=== PATIENT | female | born 1935 | race Caucasian/White ===

== ENCOUNTER → 2018-05-18 14:48 | Outpatient (CLI) | payer MEDICARE, SELFPAY ==
--- NOTE | 2018-05-18 15:01 | DI.RAD.S_ITS ---
PROCEDURE: XR HIP W PEL IF DONE LT MIN 4V INDICATIONS: left hip pain TECHNIQUE: AP pelvis with lateral view(s) of the left and right hip(s). COMPARISON: None. FINDINGS: Bones: No fractures or dislocations. Pelvic ring appears intact. No suspicious bony lesions. Soft tissues: The visualized bowel gas pattern is normal. No suspicious soft tissue calcifications. IMPRESSION: 1. No fracture or dislocation. 2. 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 Dictated by: Devorah Gallegos M.D. on 05/18/2018 at 15:56 Approved by: Devorah Gallegos M.D. on 05/18/2018 at 16:08
--- NOTE | 2018-05-18 15:01 | DI.RAD.S_ITS ---
PROCEDURE: XR LUMBAR SPINE 2-3V INDICATIONS: low back pain TECHNIQUE: 3 views of the lumbar spine were acquired. COMPARISON: None. FINDINGS: Bones: 5 [id number] vertebrae are present. There is mild levoscoliosis and grade 1 anterolisthesis of L4 over L5. There is mild vertebral body compression fractures with 25% loss of vertebral body height. No suspicious bony lesions. Osteopenia. Mild degenerative disc disease with disc space narrowing at L3-L4 and L4-L5. Moderate facet arthropathy at L4-L5 and L5-S1. Soft tissues: Overlying bowel gas pattern is normal. Extensive vascular calcifications consistent with atherosclerosis. IMPRESSION: 1. Mild L1 compression fracture of uncertain chronicity. 2. Degenerative disc and facet disease. 3. Osteopenia. 4. Severe atherosclerosis. Dictated by: Devorah Gallegos M.D. on 05/18/2018 at 16:09 Approved by: Devorah Gallegos M.D. on 05/18/2018 at 16:13
[2018-05-18 15:17] LABS: RBC Urine None Seen (0-5/HPF)
[2018-05-18 15:39] LABS: Add Manual Diff / Slide Review NO; Basophils Percent Auto 1.1 % (0-2); Eosinophils Percent Auto 1.6 % (2-4); Hematocrit 42.5 % (36-46); Hemoglobin 14.4 g/dL (12.0-16.0); Lymphocytes Percent Auto 23.1 % (25-40); Mean Corpuscular HGB Conc 33.8 % (30-36); Mean Corpuscular Hemoglobin 30.8 PG (26-34); Mean Corpuscular Volume 91.3 fL (80-100); Monocytes Percent Auto 8.7 % (3-14); Neutrophils Absolute Auto 5000 /uL (3000-5900); Neutrophils Percent Auto 65.5 % (50-75); Platelet Count 268 X10^3/uL (150-400); Red Blood Cell Count 4.66 X10^6/uL (4.0-5.2); Red Cell Distribution Width 13.9 % (11.6-14.8); White Blood Cell Count 7.6 X10^3/uL (4.5-11.0)
[2018-05-18 16:02] LABS: Alanine Aminotransferase 21 IU/L (9-52); Albumin 4.4 g/dL (3.5-5.0); Albumin Globulin Ratio 1.8 (1.0-2.8); Alkaline Phosphatase 48 U/L (38-126); Aspartate Aminotransferase 20 IU/L (14-36); BUN Creatinine Ratio 17.1 (6-22); Bilirubin Total 0.4 mg/dL (0.2-1.3); Blood Urea Nitrogen 12 mg/dL (7-17); Calcium 9.4 mg/dL (8.4-10.2); Carbon Dioxide 30 mmol/L (22-32); Chloride 101 mmol/L (98-107); Estimated Glomerular Filt Rate > 60.0 mL/min (>60); Globulin 2.5 g/dL (1.7-4.1); Glucose 86 mg/dL (80-110); HEMOLYSIS < 15 (0-50); Potassium 3.9 mmol/L (3.4-5.1); Sodium 139 mmol/L (137-145); Total Protein 6.9 g/dL (6.3-8.2)
[2018-05-18 16:36] LABS: Appearance Urine UA SL CLOUDY; Bilirubin Urine UA NEGATIVE (NEGATIVE); Color Urine UA YELLOW; Glucose Urine UA NEGATIVE (Normal); Ketones Urine UA NEGATIVE (NEGATIVE); Leukocyte Esterase Urine UA TRACE (NEGATIVE); Nitrite Urine UA Negative (Negative); Occult Blood Urine UA NEGATIVE (Negative); Protein Urine UA NEGATIVE (Negative); Urobilinogen Urine UA 0.2 E.U./dL (0.2)
[2018-05-18 16:43] LABS: Thyroid Stimulating Hormone 1.12 uIU/mL (0.47-4.68)
[2018-05-18 17:12] LABS: Bacteria Urine Many (>30); Culture Indicated Urine Specimen Cultured; Squamous Epithelial Cell Urine None Seen; WBC Urine 1-5/HPF (0-5/HPF)
== END ==
PROVIDERS: Visit Provider Physician Assistant
DX: M54.5 Low back pain (principal); M25.552 Pain in left hip; R53.83 Other fatigue; R06.02 Shortness of breath; R32 Unspecified urinary incontinence; R10.2 Pelvic and perineal pain
CPT/HCPCS: 36415; 72100; 73522; 80053; 81001; 84443; 85025; 87077; 87086; 87186

== ENCOUNTER → 2018-06-23 13:09 | Outpatient (CLI) | payer MEDICARE, SELFPAY ==
[2018-06-23 13:17] LABS: Bacteria Urine None Seen
[2018-06-23 14:09] LABS: Appearance Urine UA CLEAR; Bilirubin Urine UA NEGATIVE (NEGATIVE); Color Urine UA YELLOW; Glucose Urine UA NEGATIVE (Normal); Ketones Urine UA NEGATIVE (NEGATIVE); Leukocyte Esterase Urine UA 2+ (NEGATIVE); Nitrite Urine UA Negative (Negative); Occult Blood Urine UA TRACE-LYSED (Negative); Protein Urine UA NEGATIVE (Negative); Urobilinogen Urine UA 0.2 E.U./dL (0.2)
[2018-06-23 14:54] LABS: Culture Indicated Urine Specimen Cultured; RBC Urine 0-1/HPF (0-5/HPF); WBC Urine 10-30/HPF (0-5/HPF)
== END ==
PROVIDERS: PCP Physician Assistant; Visit Provider Physician Assistant
DX: R30.0 Dysuria (principal)
CPT/HCPCS: 81001; 87077; 87086; 87186

== ENCOUNTER → 2018-07-20 10:55 | Outpatient (CLI) | payer MEDICARE, SELFPAY ==
[2018-07-20 11:17] LABS: Bacteria Urine None Seen
[2018-07-20 13:15] LABS: Appearance Urine UA CLEAR; Bilirubin Urine UA NEGATIVE (NEGATIVE); Color Urine UA YELLOW; Glucose Urine UA NEGATIVE (Normal); Ketones Urine UA NEGATIVE (NEGATIVE); Leukocyte Esterase Urine UA NEGATIVE (NEGATIVE); Nitrite Urine UA Negative (Negative); Occult Blood Urine UA TRACE-LYSED (Negative); Protein Urine UA NEGATIVE (Negative); Urobilinogen Urine UA 0.2 E.U./dL (0.2)
[2018-07-20 13:53] LABS: Culture Indicated Urine Cult Not Indicated; RBC Urine 0-1/HPF (0-5/HPF); Squamous Epithelial Cell Urine 0-1 /HPF; WBC Urine 0-1/HPF (0-5/HPF)
== END ==
PROVIDERS: PCP Physician Assistant; Visit Provider Physician Assistant
DX: N39.0 Urinary tract infection, site not specified (principal)
CPT/HCPCS: 81001

== ENCOUNTER 2018-09-05 12:03 | Emergency (ER) | payer MEDICARE, SELFPAY ==
[2018-09-05 12:10] VITALS: BP 197/96; PULSE 72; RESP 15; TEMP 36.4; O2SAT 99; BMI 19.1
--- NOTE | 2018-09-05 12:52 | ED.FALL ---
HPI - Fall <LAURIE Tello-BC - Last Filed: 09/05/18 21:24> General Chief Complaint: Fall Stated Complaint: GLF, facial injuries Time Seen by Provider: 09/05/18 12:42 Source: patient Mode of arrival: ambulatory Limitations: no limitations History of Present Illness HPI Narrative: Patient presents after a ground level fall, where she states she tripped while walking on the sidewalk and fell on her face as she had her hands in her pockets. She complains of bloody nose, headache, multiple abrasions on her face Right wrist and right knee. she denies any loss of consciousness or blood thinners. She complains of headache, denies nausea, vomiting, dizziness, confusion. She states she was ambulating after the accident. She denies any neck pain back pain or hip pain. She does not know when her last tetanus was. She was ambulatory on scene, and stated that she did not want to come to hospital. Related Data Home Medications Medication Instructions Recorded Confirmed Calcium 1 tab PO QPM 09/05/18 09/05/18 beclomethasone dipropionate [Qvar 1 puff INHALATION BID 09/05/18 09/05/18 RediHaler] naproxen sodium [Aleve] 1 tab PO PRN PRN 09/05/18 09/05/18 Previous Rx's Medication Instructions Recorded albuterol sulfate HFA 90 2 puff INHALATION QID PRN #1 ea 06/22/18 mcg/actuation aerosol inhaler Allergies Allergy/AdvReac Type Severity Reaction Status Date / Time tree and shrub pollen Allergy Unknown Tired, Verified 09/05/18 12:24 weak, shaky, lethargic Has asthma No Known Allergies Allergy Uncoded 02/15/18 12:45 Review of Systems <LAURIE Tello-BC - Last Filed: 09/05/18 21:24> Review of Systems GENERAL: Denies chills, fatigue, malaise, fever, sweats. HEENT: Denies sinus pain, ear pain, sore throat, difficulty swallowing, dizziness. RESPIRATORY: Denies dyspnea, cough, wheezing, hemoptysis, sputum. CARDIOVASCULAR: Denies chest pain, palpitations, orthopnea, edema, GASTROINTESTINAL: Denies nausea, vomiting, abdominal pain, diarrhea, constipation, melena. : Denies dysuria, frequency, incontinence, hematuria, urinary retention. MUSCULOSKELETAL: See HPI SKIN: see HPI NEUROLOGIC: Denies weakness, headache, numbness, change in speech, confusion, seizures, incoordination. PSYCHIATRIC: No concerning psychosocial issues. 12 point review of systems is negative except for those stated above Exam <Umm HugginsLAURIE-BC - Last Filed: 09/05/18 21:24> Narrative Exam Narrative: GENERAL: Elderly female with obvious facial trauma HEAD: no pain to palpation scalp area. Patient has no palpable facial instability, but periorbital ecchymosis, nasal bridge swelling and mild full facial abrasions. EYES: Pupils equal round and reactive. Extraocular motions intact. No scleral icterus. No injection or drainage. ENT: Nose with Dried blood in both nares, purulent drainage or septal hematoma. Throat without erythema, tonsillar hypertrophy or exudate. Uvula midline. Airway patent. NECK: Trachea midline. No JVD or lymphadenopathy. Supple, nontender, no meningeal signs. CARDIOVASCULAR: Regular rate and rhythm without murmurs, gallops, or rubs. RESPIRATORY: Clear to auscultation. Breath sounds equal bilaterally. No wheezes, rales, or rhonchi. GASTROINTESTINAL: Abdomen soft, non-tender, nondistended. No hepato-splenomegaly, or palpable masses. No guarding. EXTREMITIES: No clubbing, cyanosis, or edema. No joint tenderness, effusion, or edema noted. Positive pedal pulses. BACK: Nontender without deformity or crepitance. No flank tenderness. No pain to C-spine or spinal palpation. NEURO: AOx3. Stable gait. No slurred speech. Cranial nerves grossly intact. Strength upper and lower extremities equal bilaterally. SKIN: bilateral periorbital ecchymosis noted. Facial abrasions noted. 1 cm abrasion on right wrist. 2 cm abrasion with surrounding contusion right knee. Hematoma evident middle of forehead. Initial Vital Signs Initial Vital Signs: Vital Signs Temperature 97.6 F 09/05/18 12:10 Pulse Rate 72 09/05/18 12:10 Respiratory Rate 15 09/05/18 12:10 Blood Pressure 197/96 H 09/05/18 12:10 Pulse Oximetry 99 09/05/18 12:10 <Raghu Cosby DO - Last Filed: 09/08/18 18:19> Initial Vital Signs Initial Vital Signs: Vital Signs Temperature 97.6 F 09/05/18 12:10 Pulse Rate 72 09/05/18 12:10 Respiratory Rate 15 09/05/18 12:10 Blood Pressure 197/96 H 09/05/18 12:10 Pulse Oximetry 99 09/05/18 12:10 Course <DENISSE Tello - Last Filed: 09/05/18 21:24> Course Narrative: Patient presents with a ground level fall. She was found to have a subdural on CT. She also was found to have bilateral nasal bone fractures. [facility] trauma kindly accepted the transfer. Her tetanus was updated here. At approximately 3:20 p.m., the patient was found to be hypertensive. neck cardiac pain was initiated. Dr. Piper was alerted to this change. The patient remained hemodynamically stable as well as alert and oriented during her stay in the emergency department. Orders Ordered: Discontinued Medications Nicardipine HCl 25 mg/ Sodium (Chloride) 250 mls @ 50 mls/hr IV TITRATE ROSARIO; Protocol Last Titration: 09/05/18 15:38 Dose: 5 mg/hr, 50 mls/hr Admin: 09/05/18 15:38 Dose: 5 mg/hr, 50 mls/hr Consultations Consultation #1: spoke with [facility]. Dr. Piper kindly accepts the patient for transfer. Time: 13:00 Vital Signs - 8 hr 09/05/18 15:18 09/05/18 15:42 Pulse Rate 73 62 Respiratory Rate 18 14 Blood Pressure [Left Arm] 195/86 H 180/100 H Pulse Oximetry 98 98 <Raghu Cosby DO - Last Filed: 09/08/18 18:19> Orders Ordered: Discontinued Medications Nicardipine HCl 25 mg/ Sodium (Chloride) 250 mls @ 50 mls/hr IV TITRATE ROSARIO; Protocol Last Titration: 09/05/18 15:38 Dose: 5 mg/hr, 50 mls/hr Admin: 09/05/18 15:38 Dose: 5 mg/hr, 50 mls/hr Vital Signs - 8 hr 09/05/18 15:18 09/05/18 15:42 Pulse Rate 73 62 Respiratory Rate 18 14 Blood Pressure [Left Arm] 195/86 H 180/100 H Pulse Oximetry 98 98 MDM - Fall <DENISSE Tello - Last Filed: 09/05/18 21:24> Lab Data Result diagrams: 09/05/18 14:50 09/05/18 14:50 Lab Results 09/05/18 09/05/18 09/05/18 Range/Units 14:50 14:50 14:50 WBC 12.5 H (4.5-11.0) X10^3/uL RBC 4.60 (4.0-5.2) X10^6/uL Hgb 14.0 (12.0-16.0) g/dL Hct 42.5 (36-46) % MCV 92.3 (80-100) fL MCH 30.5 (26-34) PG MCHC 33.1 (30-36) % RDW 13.5 (11.6-14.8) % Plt Count 268 (150-400) X10^3/uL Neut % (Auto) 82.8 H (50-75) % Lymph % (Auto) 9.0 L (25-40) % [place] % (Auto) 7.3 (3-14) % Eos % (Auto) 0.5 L (2-4) % Baso % (Auto) 0.4 (0-2) % Neut # (Auto) 66815 H (5395-4622) /uL PT 10.5 (10.1-12.7) SECONDS INR 1.0 (0.9-1.3) APTT 27 (26.4-36.2) SECONDS Sodium 140 (137-145) mmol/L Potassium 3.6 (3.4-5.1) mmol/L Chloride 102 (98-107) mmol/L Carbon Dioxide 25 (22-32) mmol/L BUN 9 (7-17) mg/dL Creatinine 0.60 (0.52-1.04) mg/dL Estimated GFR > 60.0 (>60) mL/min BUN/Creatinine Ratio 15.0 (6-22) Glucose 98 (80-110) mg/dL Calcium 9.0 (8.4-10.2) mg/dL Total Bilirubin 0.3 (0.2-1.3) mg/dL AST 25 (14-36) IU/L ALT 26 (9-52) IU/L Alkaline Phosphatase 57 (38-126) U/L Total Protein 6.8 (6.3-8.2) g/dL Albumin 4.5 (3.5-5.0) g/dL Globulin 2.3 (1.7-4.1) g/dL Albumin/Globulin Ratio 2.0 (1.0-2.8) Imaging Data knee xray : Radiologist's impression: [address] [address] XRay Report Signed Patient: Faina Phelan [facility]#: [id number] : 7At:[id number] Age/Sex: 83 / FDate of Service: 09/05/18 Loc: ED Accession Number: [id number] Procedure: XR knee RT 3V Ordering Provider: Umm Huggins PROCEDURE: XR KNEE RT 3V INDICATIONS: 83 year old woman with chronic level fall. TECHNIQUE: 3 views of the knee were acquired. COMPARISON: None. FINDINGS: Bones: No fractures or dislocations. No suspicious bony lesions. Soft tissues: No joint effusion. Vascular calcifications consistent with atherosclerosis. IMPRESSION: No fracture or dislocation. Dictated by: Devorah Gallegos M.D. on 09/05/2018 at 14:42 Approved by: Devorah Gallegos M.D. on 09/05/2018 at 14:[address] : Radiologist's impression: [place] [address] CT Scan Report Signed Patient: Faina Phelan [facility]#: [id number] : 7Acct:[id number] Age/Sex: 83 / FDate of Service: 09/05/18 Loc: ED Accession Number: [id number] Procedure: CT head/brain wo con Ordering Provider: Umm Huggins PROCEDURE: CT HEAD/BRAIN WO CON INDICATIONS: Ground level fall. Forehead and facial swellin/bruising TECHNIQUE: Noncontrast 4.5 mm thick angled axial sections acquired from the foramen magnum to the vertex, with coronal and sagittal reformats. For radiation dose reduction, the following was used: automated exposure control, adjustment of mA and/or kV according to patient size. COMPARISON: None. FINDINGS: Image quality: Excellent. CSF spaces: Basal cisterns are patent. No extra-axial fluid collections. The ventricles are symmetric in size and shape. Brain: Small, 4 mm maximum thickness subdural hematomas seen tracking along the anterior left margin of the falx. Small, approximate 2 mm in thickness 2 subdural hematomas seen tracking along the left ala of the tentorium. No intracranial masses. There is cerebral volume loss for age, with resultant ventricular and sulcal prominence. There are periventricular and deep white matter chronic small vessel ischemic changes. There is intracranial internal carotid artery and vertebral artery are atherosclerosis. Skull and face: Calvarium and visualized facial bones appear intact, without suspicious lesions. Frontal scalp hematoma is noted. Sinuses: Visualized sinuses and mastoids are clear. IMPRESSION: Small interhemispheric subdural hematoma tracking along the left margin of the falx and extends along the left ala of the tentorium.. Dictated by: Libra Sanchez MD, PhD on 09/05/2018 at 13:11 Approved by: Libra Sanchez MD, PhD on 09/05/2018 at 13:[address] : Radiologist's impression: [place] [address] CT Scan Report Signed Patient: Faian Phelan [facility]#: [id number] : 7Acct:[id number] Age/Sex: 83 / FDate of Service: 09/05/18 Loc: ED Accession Number: [id number] Procedure: CT facial bones wo con Ordering Provider: Umm Huggins EDUCATION TEACHER- PROCEDURE: CT FACIAL BONES WO CON INDICATIONS: Forehead and facial bruising/swelling post ground level fall TECHNIQUE: Noncontrast 2.5 mm thick axial images acquired from the mandible through the frontal sinuses, with coronal and sagittal reformatting. For radiation dose reduction, the following was used: automated exposure control, adjustment of mA and/or kV according to patient size. COMPARISON: None. FINDINGS: Image quality: Excellent. Bones and teeth: Orbital beth are intact. Sinus beth show no fracture or deformity. Nondisplaced bilateral nasal bone fractures are noted. Visualized portions of the mandible demonstrate no fractures or subluxation. Zygomatic arches are intact. Pterygoid plates are intact. Visualized portions of the skull base and auditory canals are intact. 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 Sinuses: Paranasal sinuses are aerated, without fluid levels, mucosal thickening, or mucoceles. Small left sphenoid sinus mucous retention cyst versus polyp. Mastoid air cells are aerated. Soft tissues: Frontal scalp hematoma is noted. No enlarged lymph nodes. No soft tissue lacerations or debris. Vascular: Visualized vascular structures appear normal in the absence of contrast. Bony vascular foramina and canals are intact. IMPRESSION: Nondisplaced bilateral nasal bone fractures. Dictated by: Libra Sanchez MD, PhD on 09/05/2018 at 13:28 Approved by: Libra Sanchez MD, PhD on 09/05/2018 at 13:36 [facility] Narrative Medical decision making narrative: the patient presented with a mechanical fall and subsequent facial trauma. CT revealed subdural hematoma. The patient was transferred to [facility] trauma [facility]. She was stable throughout her stay in the emergency department. Her blood pressure did become elevated so a nicardipine drip was initiated. Dr. Veronique romero was the accepting physician at [facility], who is made aware for elevated blood pressure and nicardipine drip. Her C-spine was cleared by nexus criteria, but a C-collar was placed upon transfer per air lift protocol. The patient was hemodynamically stable, alert and oriented throughout her stay in the emergency department. <Raghu Cosby, DO - Last Filed: 09/08/18 18:19> Lab Data Lab Results 09/05/18 09/05/18 09/05/18 Range/Units 14:50 14:50 14:50 WBC 12.5 H (4.5-11.0) X10^3/uL RBC 4.60 (4.0-5.2) X10^6/uL Hgb 14.0 (12.0-16.0) g/dL Hct 42.5 (36-46) % MCV 92.3 (80-100) fL MCH 30.5 (26-34) PG MCHC 33.1 (30-36) % RDW 13.5 (11.6-14.8) % Plt Count 268 (150-400) X10^3/uL Neut % (Auto) 82.8 H (50-75) % Lymph % (Auto) 9.0 L (25-40) % [place] % (Auto) 7.3 (3-14) % Eos % (Auto) 0.5 L (2-4) % Baso % (Auto) 0.4 (0-2) % Neut # (Auto) 40005 H (1407-0461) /uL PT 10.5 (10.1-12.7) SECONDS INR 1.0 (0.9-1.3) APTT 27 (26.4-36.2) SECONDS Sodium 140 (137-145) mmol/L Potassium 3.6 (3.4-5.1) mmol/L Chloride 102 (98-107) mmol/L Carbon Dioxide 25 (22-32) mmol/L BUN 9 (7-17) mg/dL Creatinine 0.60 (0.52-1.04) mg/dL Estimated GFR > 60.0 (>60) mL/min BUN/Creatinine Ratio 15.0 (6-22) Glucose 98 (80-110) mg/dL Calcium 9.0 (8.4-10.2) mg/dL Total Bilirubin 0.3 (0.2-1.3) mg/dL AST 25 (14-36) IU/L ALT 26 (9-52) IU/L Alkaline Phosphatase 57 (38-126) U/L Total Protein 6.8 (6.3-8.2) g/dL Albumin 4.5 (3.5-5.0) g/dL Globulin 2.3 (1.7-4.1) g/dL Albumin/Globulin Ratio 2.0 (1.0-2.8) Discharge Plan Departure Patient Disposition: [facility] Clinical Impression: Subdural bleeding, Fall from ground level, Fracture of nasal bone, Abrasion, Acute knee pain Discharge Date/Time: 09/05/18 15:47 Interventions: ED Discharge Assessment Last Done: 09/05/18 15:45 Prescriptions: No Action albuterol sulfate [Ventolin HFA] 90 mcg/actuation HFA aerosol inhaler 2 puff INHALATION QID PRN (Reason: shortness of breath) Qty: 1 RF: 1 beclomethasone dipropionate [Qvar RediHaler] 80 mcg/actuation HFA aerosol breath activated 1 puff Inhalation BID RF: 0 naproxen sodium [Aleve] 220 mg Tablet 1 tab PO PRN PRN (Reason: Headache) RF: 0 Calcium 1 tab PO QPM RF: 0 Referrals: Michelle Shanks PA-C [Primary Care Provider] - <Raghu Cosby DO - Last Filed: 09/08/18 18:19> Cosign ED Attending Naviature Attestation: I was available for consultation during this patient's emergency department encounter
--- NOTE | 2018-09-05 12:58 | ED_ITS ---
HPI - Fall <LAURIE Tello-BC - Last Filed: 09/05/18 21:24> General Chief Complaint: Fall Stated Complaint: GLF, facial injuries Time Seen by Provider: 09/05/18 12:42 Source: patient Mode of arrival: ambulatory Limitations: no limitations History of Present Illness HPI Narrative: Patient presents after a ground level fall, where she states she tripped while walking on the sidewalk and fell on her face as she had her hands in her pockets. She complains of bloody nose, headache, multiple abrasions on her face Right wrist and right knee. she denies any loss of consciousness or blood thinners. She complains of headache, denies nausea, vomiting, dizziness, confusion. She states she was ambulating after the accident. She denies any neck pain back pain or hip pain. She does not know when her last tetanus was. She was ambulatory on scene, and stated that she did not want to come to hospital. Related Data Home Medications Medication Instructions Recorded Confirmed Calcium 1 tab PO QPM 09/05/18 09/05/18 beclomethasone dipropionate [Qvar 1 puff INHALATION BID 09/05/18 09/05/18 RediHaler] naproxen sodium [Aleve] 1 tab PO PRN PRN 09/05/18 09/05/18 Previous Rx's Medication Instructions Recorded albuterol sulfate HFA 90 2 puff INHALATION QID PRN #1 ea 06/22/18 mcg/actuation aerosol inhaler Allergies Allergy/AdvReac Type Severity Reaction Status Date / Time tree and shrub pollen Allergy Unknown Tired, Verified 09/05/18 12:24 weak, shaky, lethargic Has asthma No Known Allergies Allergy Uncoded 02/15/18 12:45 Review of Systems <LAURIE Tello-BC - Last Filed: 09/05/18 21:24> Review of Systems GENERAL: Denies chills, fatigue, malaise, fever, sweats. HEENT: Denies sinus pain, ear pain, sore throat, difficulty swallowing, dizziness. RESPIRATORY: Denies dyspnea, cough, wheezing, hemoptysis, sputum. CARDIOVASCULAR: Denies chest pain, palpitations, orthopnea, edema, GASTROINTESTINAL: Denies nausea, vomiting, abdominal pain, diarrhea, constipation, melena. : Denies dysuria, frequency, incontinence, hematuria, urinary retention. MUSCULOSKELETAL: See HPI SKIN: see HPI NEUROLOGIC: Denies weakness, headache, numbness, change in speech, confusion, seizures, incoordination. PSYCHIATRIC: No concerning psychosocial issues. 12 point review of systems is negative except for those stated above Exam <Umm HugginsLAURIE-BC - Last Filed: 09/05/18 21:24> Narrative Exam Narrative: GENERAL: Elderly female with obvious facial trauma HEAD: no pain to palpation scalp area. Patient has no palpable facial instability, but periorbital ecchymosis, nasal bridge swelling and mild full facial abrasions. EYES: Pupils equal round and reactive. Extraocular motions intact. No scleral icterus. No injection or drainage. ENT: Nose with Dried blood in both nares, purulent drainage or septal hematoma. Throat without erythema, tonsillar hypertrophy or exudate. Uvula midline. Airway patent. NECK: Trachea midline. No JVD or lymphadenopathy. Supple, nontender, no meningeal signs. CARDIOVASCULAR: Regular rate and rhythm without murmurs, gallops, or rubs. RESPIRATORY: Clear to auscultation. Breath sounds equal bilaterally. No wheezes , rales, or rhonchi. GASTROINTESTINAL: Abdomen soft, non-tender, nondistended. No hepato-splenomegaly , or palpable masses. No guarding. EXTREMITIES: No clubbing, cyanosis, or edema. No joint tenderness, effusion, or edema noted. Positive pedal pulses. BACK: Nontender without deformity or crepitance. No flank tenderness. No pain to C-spine or spinal palpation. NEURO: AOx3. Stable gait. No slurred speech. Cranial nerves grossly intact. Strength upper and lower extremities equal bilaterally. SKIN: bilateral periorbital ecchymosis noted. Facial abrasions noted. 1 cm abrasion on right wrist. 2 cm abrasion with surrounding contusion right knee. Hematoma evident middle of forehead. Initial Vital Signs Initial Vital Signs: Vital Signs Temperature 97.6 F 09/05/18 12:10 Pulse Rate 72 09/05/18 12:10 Respiratory Rate 15 09/05/18 12:10 Blood Pressure 197/96 H 09/05/18 12:10 Pulse Oximetry 99 09/05/18 12:10 <Raghu Cosby DO - Last Filed: 09/08/18 18:19> Initial Vital Signs Initial Vital Signs: Vital Signs Temperature 97.6 F 09/05/18 12:10 Pulse Rate 72 09/05/18 12:10 Respiratory Rate 15 09/05/18 12:10 Blood Pressure 197/96 H 09/05/18 12:10 Pulse Oximetry 99 09/05/18 12:10 Course <DENISSE Tello - Last Filed: 09/05/18 21:24> Course Narrative: Patient presents with a ground level fall. She was found to have a subdural on CT. She also was found to have bilateral nasal bone fractures. [facility] kindly accepted the transfer. Her tetanus was updated here. At approximately 3:20 p.m., the patient was found to be hypertensive. neck cardiac pain was initiated. Dr. Piper was alerted to this change. The patient remained hemodynamically stable as well as alert and oriented during her stay in the emergency department. Orders Ordered: Discontinued Medications Nicardipine HCl 25 mg/ Sodium (Chloride) 250 mls @ 50 mls/hr IV TITRATE ROSARIO; Protocol Last Titration: 09/05/18 15:38 Dose: 5 mg/hr, 50 mls/hr Admin: 09/05/18 15:38 Dose: 5 mg/hr, 50 mls/hr Consultations Consultation #1: spoke with [facility]. Dr. Piper kindly accepts the patient for transfer. Time: 13:00 Vital Signs - 8 hr 09/05/18 15:18 09/05/18 15:42 Pulse Rate 73 62 Respiratory Rate 18 14 Blood Pressure [Left Arm] 195/86 H 180/100 H Pulse Oximetry 98 98 <Raghu Cosby DO - Last Filed: 09/08/18 18:19> Orders Ordered: Discontinued Medications Nicardipine HCl 25 mg/ Sodium (Chloride) 250 mls @ 50 mls/hr IV TITRATE ROSARIO; Protocol Last Titration: 09/05/18 15:38 Dose: 5 mg/hr, 50 mls/hr Admin: 09/05/18 15:38 Dose: 5 mg/hr, 50 mls/hr Vital Signs - 8 hr 09/05/18 15:18 09/05/18 15:42 Pulse Rate 73 62 Respiratory Rate 18 14 Blood Pressure [Left Arm] 195/86 H 180/100 H Pulse Oximetry 98 98 MDM - Fall <DENISSE Tello - Last Filed: 09/05/18 21:24> Lab Data Result diagrams: 09/05/18 14:50 09/05/18 14:50 Lab Results 09/05/18 09/05/18 09/05/18 Range/Units 14:50 14:50 14:50 WBC 12.5 H (4.5-11.0) X10^3/uL RBC 4.60 (4.0-5.2) X10^6/uL Hgb 14.0 (12.0-16.0) g/dL Hct 42.5 (36-46) % MCV 92.3 (80-100) fL MCH 30.5 (26-34) PG MCHC 33.1 (30-36) % RDW 13.5 (11.6-14.8) % Plt Count 268 (150-400) X10^3/uL Neut % (Auto) 82.8 H (50-75) % Lymph % (Auto) 9.0 L (25-40) % [place] % (Auto) 7.3 (3-14) % Eos % (Auto) 0.5 L (2-4) % Baso % (Auto) 0.4 (0-2) % Neut # (Auto) 71502 H (8829-2472) /uL PT 10.5 (10.1-12.7) SECONDS INR 1.0 (0.9-1.3) APTT 27 (26.4-36.2) SECONDS Sodium 140 (137-145) mmol/L Potassium 3.6 (3.4-5.1) mmol/L Chloride 102 (98-107) mmol/L Carbon Dioxide 25 (22-32) mmol/L BUN 9 (7-17) mg/dL Creatinine 0.60 (0.52-1.04) mg/dL Estimated GFR > 60.0 (>60) mL/min BUN/Creatinine Ratio 15.0 (6-22) Glucose 98 (80-110) mg/dL Calcium 9.0 (8.4-10.2) mg/dL Total Bilirubin 0.3 (0.2-1.3) mg/dL AST 25 (14-36) IU/L ALT 26 (9-52) IU/L Alkaline Phosphatase 57 (38-126) U/L Total Protein 6.8 (6.3-8.2) g/dL Albumin 4.5 (3.5-5.0) g/dL Globulin 2.3 (1.7-4.1) g/dL Albumin/Globulin Ratio 2.0 (1.0-2.8) Imaging Data knee xray : Radiologist's impression: [address] [address] XRay Report Signed Patient: Faina Phelan [facility]#: [id number] : 7At:[id number] Age/Sex: 83 / FDate of Service: 09/05/18 Loc: ED Accession Number: [id number] Procedure: XR knee RT 3V Ordering Provider: Umm Huggins PROCEDURE: XR KNEE RT 3V INDICATIONS: 83 year old woman with chronic level fall. TECHNIQUE: 3 views of the knee were acquired. COMPARISON: None. FINDINGS: Bones: No fractures or dislocations. No suspicious bony lesions. Soft tissues: No joint effusion. Vascular calcifications consistent with atherosclerosis. IMPRESSION: No fracture or dislocation. Dictated by: Devorah Gallegos M.D. on 09/05/2018 at 14:42 Approved by: Devorah Gallegos M.D. on 09/05/2018 at 14:[address] : Radiologist's impression: [place] [address] CT Scan Report Signed Patient: Faina Phelan [facility]#: [id number] : 7Acct:[id number] Age/Sex: 83 / FDate of Service: 09/05/18 Loc: ED Accession Number: [id number] Procedure: CT head/brain wo con Ordering Provider: Umm Huggins PROCEDURE: CT HEAD/BRAIN WO CON INDICATIONS: Ground level fall. Forehead and facial swellin/bruising TECHNIQUE: Noncontrast 4.5 mm thick angled axial sections acquired from the foramen magnum to the vertex, with coronal and sagittal reformats. For radiation dose reduction, the following was used: automated exposure control, adjustment of mA and/or kV according to patient size. COMPARISON: None. FINDINGS: Image quality: Excellent. CSF spaces: Basal cisterns are patent. No extra-axial fluid collections. The ventricles are symmetric in size and shape. Brain: Small, 4 mm maximum thickness subdural hematomas seen tracking along the anterior left margin of the falx. Small, approximate 2 mm in thickness 2 subdural hematomas seen tracking along the left ala of the tentorium. No intracranial masses. There is cerebral volume loss for age, with resultant ventricular and sulcal prominence. There are periventricular and deep white matter chronic small vessel ischemic changes. There is intracranial internal carotid artery and vertebral artery are atherosclerosis. Skull and face: Calvarium and visualized facial bones appear intact, without suspicious lesions. Frontal scalp hematoma is noted. Sinuses: Visualized sinuses and mastoids are clear. IMPRESSION: Small interhemispheric subdural hematoma tracking along the left margin of the falx and extends along the left ala of the tentorium.. Dictated by: Libra Sanchez MD, PhD on 09/05/2018 at 13:11 Approved by: Libra Sanchez MD, PhD on 09/05/2018 at 13:[address] : Radiologist's impression: [place] [address] CT Scan Report Signed Patient: Faina Phelan [facility]#: [id number] : 7Acct:[id number] Age/Sex: 83 / FDate of Service: 09/05/18 Loc: ED Accession Number: [id number] Procedure: CT facial bones wo con Ordering Provider: Umm Huggins SPORTS STATISTICIAN- PROCEDURE: CT FACIAL BONES WO CON INDICATIONS: Forehead and facial bruising/swelling post ground level fall TECHNIQUE: Noncontrast 2.5 mm thick axial images acquired from the mandible through the frontal sinuses, with coronal and sagittal reformatting. For radiation dose reduction, the following was used: automated exposure control, adjustment of mA and/or kV according to patient size. COMPARISON: None. FINDINGS: Image quality: Excellent. Bones and teeth: Orbital beth are intact. Sinus beth show no fracture or deformity. Nondisplaced bilateral nasal bone fractures are noted. Visualized portions of the mandible demonstrate no fractures or subluxation. Zygomatic arches are intact. Pterygoid plates are intact. Visualized portions of the skull base and auditory canals are intact. 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 Sinuses: Paranasal sinuses are aerated, without fluid levels, mucosal thickening, or mucoceles. Small left sphenoid sinus mucous retention cyst versus polyp. Mastoid air cells are aerated. Soft tissues: Frontal scalp hematoma is noted. No enlarged lymph nodes. No soft tissue lacerations or debris. Vascular: Visualized vascular structures appear normal in the absence of contrast. Bony vascular foramina and canals are intact. IMPRESSION: Nondisplaced bilateral nasal bone fractures. Dictated by: Libra Sanchez MD, PhD on 09/05/2018 at 13:28 Approved by: Libra Sanchez MD, PhD on 09/05/2018 at 13:36 [facility] Narrative Medical decision making narrative: the patient presented with a mechanical fall and subsequent facial trauma. CT revealed subdural hematoma. The patient was transferred to [facility]. She was stable throughout her stay in the emergency department. Her blood pressure did become elevated so a nicardipine drip was initiated. Dr. Veronique romero was the accepting physician at [facility], who is made aware for elevated blood pressure and nicardipine drip. Her C-spine was cleared by nexus criteria, but a C-collar was placed upon transfer per air lift protocol. The patient was hemodynamically stable, alert and oriented throughout her stay in the emergency department. <Raghu Cosby, DO - Last Filed: 09/08/18 18:19> Lab Data Lab Results 09/05/18 09/05/18 09/05/18 Range/Units 14:50 14:50 14:50 WBC 12.5 H (4.5-11.0) X10^3/uL RBC 4.60 (4.0-5.2) X10^6/uL Hgb 14.0 (12.0-16.0) g/dL Hct 42.5 (36-46) % MCV 92.3 (80-100) fL MCH 30.5 (26-34) PG MCHC 33.1 (30-36) % RDW 13.5 (11.6-14.8) % Plt Count 268 (150-400) X10^3/uL Neut % (Auto) 82.8 H (50-75) % Lymph % (Auto) 9.0 L (25-40) % [place] % (Auto) 7.3 (3-14) % Eos % (Auto) 0.5 L (2-4) % Baso % (Auto) 0.4 (0-2) % Neut # (Auto) 42234 H (3361-5863) /uL PT 10.5 (10.1-12.7) SECONDS INR 1.0 (0.9-1.3) APTT 27 (26.4-36.2) SECONDS Sodium 140 (137-145) mmol/L Potassium 3.6 (3.4-5.1) mmol/L Chloride 102 (98-107) mmol/L Carbon Dioxide 25 (22-32) mmol/L BUN 9 (7-17) mg/dL Creatinine 0.60 (0.52-1.04) mg/dL Estimated GFR > 60.0 (>60) mL/min BUN/Creatinine Ratio 15.0 (6-22) Glucose 98 (80-110) mg/dL Calcium 9.0 (8.4-10.2) mg/dL Total Bilirubin 0.3 (0.2-1.3) mg/dL AST 25 (14-36) IU/L ALT 26 (9-52) IU/L Alkaline Phosphatase 57 (38-126) U/L Total Protein 6.8 (6.3-8.2) g/dL Albumin 4.5 (3.5-5.0) g/dL Globulin 2.3 (1.7-4.1) g/dL Albumin/Globulin Ratio 2.0 (1.0-2.8) Discharge Plan Departure Patient Disposition: [facility] Clinical Impression: Subdural bleeding, Fall from ground level, Fracture of nasal bone, Abrasion, Acute knee pain Discharge Date/Time: 09/05/18 15:47 Interventions: ED Discharge Assessment Last Done: 09/05/18 15:45 Prescriptions: No Action albuterol sulfate [Ventolin HFA] 90 mcg/actuation HFA aerosol inhaler 2 puff INHALATION QID PRN (Reason: shortness of breath) Qty: 1 RF: 1 beclomethasone dipropionate [Qvar RediHaler] 80 mcg/actuation HFA aerosol breath activated 1 puff Inhalation BID RF: 0 naproxen sodium [Aleve] 220 mg Tablet 1 tab PO PRN PRN (Reason: Headache) RF: 0 Calcium 1 tab PO QPM RF: 0 Referrals: Michelle Shanks PA-C [Primary Care Provider] - <Raghu Cosby DO - Last Filed: 09/08/18 18:19> Cosign ED Attending Naviature Attestation: I was available for consultation during this patient's emergency department encounter
--- NOTE | 2018-09-05 13:06 | DI.CT.S_ITS ---
PROCEDURE: CT FACIAL BONES WO CON INDICATIONS: Forehead and facial bruising/swelling post ground level fall TECHNIQUE: Noncontrast 2.5 mm thick axial images acquired from the mandible through the frontal sinuses, with coronal and sagittal reformatting. For radiation dose reduction, the following was used: automated exposure control, adjustment of mA and/or kV according to patient size. COMPARISON: None. FINDINGS: Image quality: Excellent. Bones and teeth: Orbital beth are intact. Sinus beth show no fracture or deformity. Nondisplaced bilateral nasal bone fractures are noted. Visualized portions of the mandible demonstrate no fractures or subluxation. Zygomatic arches are intact. Pterygoid plates are intact. Visualized portions of the skull base and auditory canals are intact. 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 Sinuses: Paranasal sinuses are aerated, without fluid levels, mucosal thickening, or mucoceles. Small left sphenoid sinus mucous retention cyst versus polyp. Mastoid air cells are aerated. Soft tissues: Frontal scalp hematoma is noted. No enlarged lymph nodes. No soft tissue lacerations or debris. Vascular: Visualized vascular structures appear normal in the absence of contrast. Bony vascular foramina and canals are intact. IMPRESSION: Nondisplaced bilateral nasal bone fractures. Dictated by: Libra Sanchez MD, PhD on 09/05/2018 at 13:28 Approved by: Libra Sanchez MD, PhD on 09/05/2018 at 13:36
--- NOTE | 2018-09-05 13:06 | DI.CT.S_ITS ---
PROCEDURE: CT HEAD/BRAIN WO CON INDICATIONS: Ground level fall. Forehead and facial swellin/bruising TECHNIQUE: Noncontrast 4.5 mm thick angled axial sections acquired from the foramen magnum to the vertex, with coronal and sagittal reformats. For radiation dose reduction, the following was used: automated exposure control, adjustment of mA and/or kV according to patient size. COMPARISON: None. FINDINGS: Image quality: Excellent. CSF spaces: Basal cisterns are patent. No extra-axial fluid collections. The ventricles are symmetric in size and shape. Brain: Small, 4 mm maximum thickness subdural hematomas seen tracking along the anterior left margin of the falx. Small, approximate 2 mm in thickness 2 subdural hematomas seen tracking along the left ala of the tentorium. No intracranial masses. There is cerebral volume loss for age, with resultant ventricular and sulcal prominence. There are periventricular and deep white matter chronic small vessel ischemic changes. There is intracranial internal carotid artery and vertebral artery are atherosclerosis. Skull and face: Calvarium and visualized facial bones appear intact, without suspicious lesions. Frontal scalp hematoma is noted. Sinuses: Visualized sinuses and mastoids are clear. IMPRESSION: Small interhemispheric subdural hematoma tracking along the left margin of the falx and extends along the left ala of the tentorium.. Dictated by: Libra Sanchez MD, PhD on 09/05/2018 at 13:11 Approved by: Libra Sanchez MD, PhD on 09/05/2018 at 13:16
[2018-09-05 15:18] VITALS: BP 195/86; PULSE 73; RESP 18; O2SAT 98
[2018-09-05 15:20] LABS: Prothrombin Time 10.5 SECONDS (10.1-12.7)
[2018-09-05 15:22] LABS: Add Manual Diff / Slide Review NO; Basophils Percent Auto 0.4 % (0-2); Eosinophils Percent Auto 0.5 % (2-4); Hematocrit 42.5 % (36-46); Mean Corpuscular HGB Conc 33.1 % (30-36); Mean Corpuscular Hemoglobin 30.5 PG (26-34); Mean Corpuscular Volume 92.3 fL (80-100); Monocytes Percent Auto 7.3 % (3-14); Neutrophils Absolute Auto 10400 /uL (3000-5900); Neutrophils Percent Auto 82.8 % (50-75); Platelet Count 268 X10^3/uL (150-400); Red Cell Distribution Width 13.5 % (11.6-14.8); White Blood Cell Count 12.5 X10^3/uL (4.5-11.0)
[2018-09-05 15:26] LABS: Alanine Aminotransferase 26 IU/L (9-52); Albumin 4.5 g/dL (3.5-5.0); Alkaline Phosphatase 57 U/L (38-126); Aspartate Aminotransferase 25 IU/L (14-36); Bilirubin Total 0.3 mg/dL (0.2-1.3); Blood Urea Nitrogen 9 mg/dL (7-17); Carbon Dioxide 25 mmol/L (22-32); Chloride 102 mmol/L (98-107); Estimated Glomerular Filt Rate > 60.0 mL/min (>60); Globulin 2.3 g/dL (1.7-4.1); Glucose 98 mg/dL (80-110); HEMOLYSIS < 15 (0-50); Potassium 3.6 mmol/L (3.4-5.1); Sodium 140 mmol/L (137-145); Total Protein 6.8 g/dL (6.3-8.2)
[2018-09-05 15:29] LABS: PTT Partial Thromboplastin Tim 27 SECONDS (26.4-36.2)
[2018-09-05] MEDS: DIPHTH,PERTUSS(ACELL),TET VAC 0.5 ML SYRINGE IM (15:37)
[2018-09-05] MEDS: NICARDIPINE 25 MG in SODIUM CHLORIDE 0.9% 240 ML 50 ML IV (15:38)
[2018-09-05 15:42] VITALS: BP 180/100; PULSE 62; RESP 14; O2SAT 98
--- NOTE | 2018-09-05 15:42 | PC.NURSE ---
Nicardipine gtt was turned over to [facility] for management.
== END 2018-09-05 15:47 | disposition short-term general hospital (02) ==
PROVIDERS: Emergency Provider Nurse Practitioner Family; PCP Physician Assistant
DX: I62.00 Nontraumatic subdural hemorrhage, unspecified (principal); S02.2XXA Fracture of nasal bones, initial encounter for closed fracture; S00.81XA Abrasion of other part of head, initial encounter; M25.561 Pain in right knee; W01.0XXA Fall on same level from slipping, tripping and stumbling without subsequent striking against object, initial encounter
CPT/HCPCS: 36591; 70450; 70486; 73562; 80053; 85025; 85610; 85730; 90471; 90715; 99283; 99284

== ENCOUNTER 2021-07-11 11:32 | Emergency (ER) | payer MEDICARE, SELFPAY ==
[2021-07-11] VITALS (51 sets, daily range): BP systolic 102–236; BP diastolic 58–128; PULSE 37–112; RESP 20–36; TEMP 36.7; O2SAT 93–97
--- NOTE | 2021-07-11 11:35 | DI.RAD.S_ITS ---
PROCEDURE: XR CHEST 1V INDICATIONS: chest pain TECHNIQUE: One view of the chest was acquired. COMPARISON: [facility], CT, CT HEAD/BRAIN WO CON, 07/11/2021, 12:01. FINDINGS: Surgical changes and devices: None. Lungs and pleura: On this semiupright portable chest examination, no large pneumothorax or large pleural effusions are seen. No focal infiltrates are seen. Mild generalized interstitial prominence can be seen. Mediastinum: Mediastinal contours appear normal. Heart size is normal. Atherosclerotic calcification of the aortic arch is noted. Bones and chest wall: No suspicious bony lesions. Age-appropriate bony degenerative changes are seen. Overlying soft tissues appear unremarkable. IMPRESSION: Interstitial prominence is seen throughout. The interstitial prominence is nonspecific, yet may be related to pulmonary edema. Please consider atypical infection, including COVID pneumonia. Dictated by: Moses Gibbs M.D. on 07/11/2021 at 11:39 Approved by: Moses Gibbs M.D. on 07/11/2021 at 11:39
--- NOTE | 2021-07-11 11:35 | DI.CT.S_ITS ---
PROCEDURE: CT HEAD/BRAIN WO CON INDICATIONS: fall TECHNIQUE: Noncontrast 4.5 mm thick angled axial sections acquired from the foramen magnum to the vertex, with coronal and sagittal reformats. For radiation dose reduction, the following was used: automated exposure control, adjustment of mA and/or kV according to patient size. COMPARISON: [facility], CT, CT HEAD/BRAIN WO CON, 09/05/2018, 12:58. FINDINGS: Image quality: Mild streak artifact can be seen through the skull base. CSF spaces: Basal cisterns are patent. No extra-axial fluid collections. The ventricles are symmetric in size and shape. Brain: No intracranial bleeds or masses. The hemorrhage seen in 2018 has resolved. There is cerebral volume loss for age, with resultant ventricular and sulcal prominence. There are periventricular and deep white matter chronic small vessel ischemic changes. There is intracranial internal carotid artery atherosclerosis. Skull and face: Calvarium and visualized facial bones appear intact, without suspicious lesions. Sinuses: Visualized sinuses and mastoids are clear. IMPRESSION: No acute intracranial hemorrhage is seen. No acute intracranial process is seen. Note is made of age-appropriate brain parenchymal volume loss and chronic small vessel ischemic changes. No displaced calvarial fracture is seen. Dictated by: Moses Gibbs M.D. on 07/11/2021 at 11:11 Approved by: Moses Gibbs M.D. on 07/11/2021 at 11:13
[2021-07-11 11:44] LABS: Add Manual Diff / Slide Review NO; Basophils Absolute Auto 0 /uL (0-100); Basophils Percent Auto 0.6 % (0-2); Eosinophils Absolute Auto 100 /uL (0-450); Eosinophils Percent Auto 0.9 % (2-4); Hematocrit 41.4 % (36-46); Hemoglobin 13.9 g/dL (12.0-16.0); Lymphocytes Absolute Auto 1200 /uL (1100-4500); Lymphocytes Percent Auto 16.2 % (25-40); Mean Corpuscular HGB Conc 33.6 % (30-36); Mean Corpuscular Hemoglobin 30.8 PG (26-34); Mean Corpuscular Volume 91.8 fL (80-100); Monocytes Absolute Auto 800 /uL (0-900); Monocytes Percent Auto 10.6 % (3-14); Neutrophils Absolute Auto 5300 /uL (1500-7000); Neutrophils Percent Auto 71.7 % (50-75); Platelet Count 240 X10^3/uL (150-400); Red Blood Cell Count 4.51 X10^6/uL (4.0-5.2); Red Cell Distribution Width 13.7 % (11.6-14.8); White Blood Cell Count 7.3 X10^3/uL (4.5-11.0)
[2021-07-11 12:01] LABS: Alanine Aminotransferase 33 IU/L (<35); Albumin Globulin Ratio 1.6 (1.0-2.8); Alkaline Phosphatase 68 U/L (38-126); Aspartate Aminotransferase 35 IU/L (14-36); BUN Creatinine Ratio 20.4 (6-22); Bilirubin Total 0.7 mg/dL (0.2-1.3); Blood Urea Nitrogen 11 mg/dL (7-17); Calcium 8.9 mg/dL (8.4-10.2); Carbon Dioxide 26 mmol/L (22-32); Chloride 105 mmol/L (98-107); Creatine Kinase 138 U/L (30-135); Estimated Glomerular Filt Rate > 60.0 mL/min (>60); Globulin 2.5 g/dL (1.7-4.1); Glucose 108 mg/dL (80-110); HEMOLYSIS < 15 (0-50); Lipase 167 U/L (23-300); Potassium 4.3 mmol/L (3.4-5.1); Sodium 135 mmol/L (137-145); Total Protein 6.5 g/dL (6.3-8.2)
[2021-07-11 12:07] LABS: INR 1.1 (0.9-1.3); Prothrombin Time 12.7 SECONDS (10.1-12.7)
[2021-07-11 12:10] LABS: Lactate (Lactic Acid) 1.1 mmol/L (0.7-2.1); PTT Partial Thromboplastin Tim 33 SECONDS (26.4-36.2)
[2021-07-11 12:10] LABS: NT-proBNP (BNP-Adult 18+) 4590 pg/mL (<450)
[2021-07-11 12:16] LABS: CKMB % Relative Index 2.6 % (1.5-5.0); Creatine Kinase MB 3.55 ng/mL (<2.37)
[2021-07-11 12:19] LABS: Procalcitonin 0.04 ng/mL (<0.5)
[2021-07-11 12:27] LABS: COVID19 -Nasal RAPID Negative (Negative)
[2021-07-11] MEDS: ALBUTEROL/IPRATROPIUM 3 ML AMPUL INH (12:28)
--- NOTE | 2021-07-11 12:32 | RT ---
pt on room air, no distress noted and bobby neb tx well.
--- NOTE | 2021-07-11 12:35 | ED.SOB ---
HPI - SOB/Dyspnea General Chief Complaint: Shortness of Breath/Dyspnea Stated Complaint: GLF Time Seen by Provider: 07/11/21 11:35 Source: patient Mode of arrival: Ambulatory Limitations: no limitations History of Present Illness HPI Narrative: Patient is an 86-year-old female who has history of asthma, is a former smoker quit last fall, presenting with 4 days of increasing shortness of breath and chest discomfort. She says she can not really describe the chest pain but is slightly uncomfortable. She is having harder time breathing. Describes some orthopnea but says she does not need a recliner in upright position. She denies any fever or chills, no productive cough. Today she was not female feeling well she sat down fell backwards and hit her head. She did not lose consciousness no nausea or vomiting. When EMS arrived she was quite hypertensive systolic in the 200s and bradycardic with heart rate in the 40s. This she was given nitroglycerin by EMS for chest discomfort which helped her blood pressure but heart rate remains in the 40s. Biggest complaint seems to be overall not feeling well and having shortness of breath Related Data Home Medications Medication Instructions Recorded Confirmed Calcium 1 tab PO QPM 09/05/18 01/09/21 naproxen sodium 220 mg tablet 1 tab PO PRN PRN 09/05/18 01/09/21 (Aleve) biotin 2,500 mcg capsule 2,500 mcg PO DAILY 12/03/19 01/09/21 vit B complex 100 combo no.2 100 tab PO DAILY tab 01/09/21 01/09/21 mg tablet,extended release (B-100 Complex ER) Previous Rx's Medication Instructions Recorded albuterol sulfate 90 mcg/actuation 2 puff INHALATION .prn PRN #18 ea 07/09/21 aerosol inhaler (Ventolin HFA) beclomethasone dipropionate 80 1 inh INHALATION DAILY #10.6 g 07/09/21 mcg/actuation HFA breath activated aerosol Allergies Allergy/AdvReac Type Severity Reaction Status Date / Time tree and shrub pollen Allergy Unknown Tired, Verified 01/09/21 14:34 weak, shaky, lethargic Has asthma No Known Allergies Allergy Uncoded 01/09/21 14:34 Review of Systems Review of Systems ROS Unobtainable: All systems reviewed & are unremarkable except as noted in HPI and below Constitutional Constitutional: Denies body ache(s), Denies chills and Reports fatigue Eyes Eyes: Denies exophthalmos ENT Ears, Nose, Mouth, and Throat: Denies vertigo and Denies dizziness Cardiovascular Cardiovascular: Denies chest pain, Reports dyspnea and Reports dyspnea on exertion Respiratory Respiratory: Denies chest congestion, Denies cough, Reports dyspnea and Reports dyspnea on exertion Musculoskeletal Musculoskeletal: Denies back pain and Denies myalgias Integumentary/Breasts Skin/Breast: Denies rash Neurologic Neurologic: Denies vertigo and Denies dizziness Endocrine Endocrine: Reports fatigue Patient History Medical History (Updated 07/11/21 @ 19:41 by Anusha Amaral DO) Asthma Encounter for smoking cessation counseling Gait difficulty Hypertension Family History (Updated 09/19/17 @ 00:00 by Conversion Provider) Sister Age: 78 Arthritis Social History Smoking Status: Former smoker Tobacco: How many years used: 60 second hand exposure: No alcohol intake: current substance use type: does not use Smoking Status: Former smoker alcohol intake frequency: 0-2 drinks per day Substance Use Type: does not use Exam Initial Vital Signs Initial Vital Signs: Vital Signs Temperature 98.1 F 07/11/21 11:53 Pulse Rate 47 L 07/11/21 11:53 Respiratory Rate 22 07/11/21 11:53 Blood Pressure 162/85 H 07/11/21 11:53 Pulse Oximetry 94 07/11/21 11:53 GENERAL: Alert pleasant 86-year-old female HEENT: Head posterior hematoma no crepitations no depressions no abrasion EOMI, pupils reactive, face symmetric, moist mucous membranes NECK: No vertebral tenderness step-offs full flexion extension rotation CARDIOVASCULAR: Regular rate and rhythm without murmurs, rubs or gallops. RESPIRATORY: Breath sounds equal bilaterally, no wheezes rales or rhonchi. ABDOMEN: Soft, nontender. Normoactive bowel sounds all 4 quadrants. No guarding or rebound. EXTREMITIES: Normal range of motion, no clubbing or edema. Neurovascularly intact NEUROLOGICAL: Alert and oriented x4.Normal gait and speech. Cranial nerves II through XII grossly intact. SKIN: Warm, dry, no laceration, no petechiae, no rashes or lesions. Course Orders Ordered: Discontinued Medications Albuterol/Ipratropium (Albuterol/Ipratropium 3 Ml Ampul) 3 ml INH NOW ONE Stop: 07/11/21 11:42 Last Admin: 07/11/21 12:28 Dose: 3 ml Documented by: LEV Atorvastatin Calcium (Atorvastatin 20 Mg Tablet) 80 mg PO NOW ONE Stop: 07/11/21 15:17 Last Admin: 07/11/21 15:35 Dose: 80 mg Documented by: GUTIERREZ Furosemide (Furosemide 40 Mg/4 Ml Vial) 20 mg IV NOW ONE Stop: 07/11/21 12:45 Last Admin: 07/11/21 13:11 Dose: 20 mg Documented by: GUTIERREZ Heparin Sodium (Porcine) (Heparin 5,000 Unit/Ml Vial) 4,000 unit IV NOW ONE Stop: 07/11/21 13:59 Last Admin: 07/11/21 14:34 Dose: 4,000 unit Documented by: GUTIERREZ Sodium Chloride (Normal Saline 0.9%) 1,000 mls @ 150 mls/hr IV CONT ROSARIO Last Infusion: 07/11/21 13:54 Dose: 0 mls/hr Documented by: Admin: 07/11/21 12:44 Dose: 150 mls/hr Documented by: GUTIERREZ Heparin Sodium/Dextrose (Heparin Drip) 25,000 unit in 500 mls @ 15.023 mls/hr IV CONT ROSARIO; Protocol Last Titration: 07/11/21 21:21 Dose: 0 units/kg/hr, 0 mls/hr Documented by: Admin: 07/11/21 14:35 Dose: 12 units/kg/hr, 15.023 mls/hr Documented by: GUTIERREZ Amiodarone HCl/Dextrose (Nexterone) 150 mg in 100 mls @ 600 mls/hr IV NOW ONE; Protocol Stop: 07/11/21 15:53 Last Infusion: 07/11/21 16:38 Dose: 0 mls/hr Documented by: Admin: 07/11/21 16:18 Dose: 600 mls/hr Documented by: GUTIERREZ Amiodarone HCl/Dextrose (Nexterone) 360 mg in 200 mls @ 33.333 mls/hr IV NOW ONE; Protocol Stop: 07/11/21 22:44 Last Titration: 07/11/21 21:22 Dose: 0 ml/hr, 0 mls/hr Documented by: Admin: 07/11/21 17:01 Dose: 33.333 ml/hr, 33.33 mls/hr Documented by: GUTIERREZ Metoprolol Tartrate (Metoprolol Tartrate 5 Mg/5 Ml Inj) 5 mg IV NOW ONE Stop: 07/11/21 17:43 Last Admin: 07/11/21 19:27 Dose: 2.5 mg Documented by: GUTIERREZ Vital Signs Vital signs: Vital Signs - 8 hr 07/11/21 11:53 07/11/21 12:29 07/11/21 13:19 Temperature 98.1 F Pulse Rate 47 L 42 L 42 L Respiratory Rate 22 20 36 H Blood Pressure 162/85 H Pulse Oximetry 94 94 96 07/11/21 13:30 07/11/21 13:45 07/11/21 13:55 Temperature Pulse Rate 40 L 45 L 40 L Respiratory Rate 21 24 22 Blood Pressure 219/89 H Pulse Oximetry 96 96 97 07/11/21 14:00 07/11/21 14:15 07/11/21 14:16 Temperature Pulse Rate 84 50 L 43 L Respiratory Rate 22 32 H 23 Blood Pressure 127/59 L Pulse Oximetry 96 96 96 07/11/21 14:30 07/11/21 14:45 07/11/21 15:00 Temperature Pulse Rate 70 87 55 L Respiratory Rate 23 25 H 24 Blood Pressure 125/80 Pulse Oximetry 96 96 93 07/11/21 15:15 07/11/21 15:16 07/11/21 15:30 Temperature Pulse Rate 72 89 88 Respiratory Rate 26 H 21 22 Blood Pressure 134/65 Pulse Oximetry 94 95 95 07/11/21 15:45 07/11/21 16:00 07/11/21 16:01 Temperature Pulse Rate 88 90 87 Respiratory Rate 22 22 31 H Blood Pressure 147/66 H Pulse Oximetry 95 95 95 07/11/21 16:15 07/11/21 16:24 07/11/21 16:30 Temperature Pulse Rate 92 H 90 37 L Respiratory Rate 22 22 24 Blood Pressure 125/97 H Pulse Oximetry 96 96 95 07/11/21 16:31 07/11/21 16:45 07/11/21 16:46 Temperature Pulse Rate 38 L 63 64 Respiratory Rate 26 H 25 H 22 Blood Pressure 196/81 H 222/88 H Pulse Oximetry 95 95 95 07/11/21 17:00 07/11/21 17:01 07/11/21 17:15 Temperature Pulse Rate 91 H 94 H 97 H Respiratory Rate 25 H 25 H 25 H Blood Pressure 200/126 H 206/112 H Pulse Oximetry 95 95 96 07/11/21 17:30 07/11/21 17:31 07/11/21 17:45 Temperature Pulse Rate 92 H 93 H 94 H Respiratory Rate 33 H 30 H 23 Blood Pressure 209/125 H Pulse Oximetry 96 96 97 07/11/21 17:46 07/11/21 18:00 07/11/21 18:01 Temperature Pulse Rate 93 H 97 H 94 H Respiratory Rate 26 H 29 H 29 H Blood Pressure 187/103 H 236/128 H Pulse Oximetry 96 95 95 07/11/21 18:04 07/11/21 18:15 07/11/21 18:26 Temperature Pulse Rate 67 72 95 H Respiratory Rate 31 H 23 25 H Blood Pressure 191/83 H 125/58 L Pulse Oximetry 95 07/11/21 18:30 07/11/21 18:39 07/11/21 18:45 Temperature Pulse Rate 93 H 95 H 105 H Respiratory Rate 24 26 H 23 Blood Pressure 128/60 Pulse Oximetry 07/11/21 19:00 07/11/21 19:15 Temperature Pulse Rate 112 H 47 L Respiratory Rate 25 H 23 Blood Pressure Pulse Oximetry MDM - SOB/Dyspnea Lab Data Result diagrams: 07/11/21 11:40 07/11/21 11:40 Labs: Lab Results 07/11/21 07/11/21 07/11/21 Range/Units 11:40 11:40 11:40 WBC 7.3 (4.5-11.0) X10^3/uL RBC 4.51 (4.0-5.2) X10^6/uL Hgb 13.9 (12.0-16.0) g/dL Hct 41.4 (36-46) % MCV 91.8 (80-100) fL MCH 30.8 (26-34) PG MCHC 33.6 (30-36) % RDW 13.7 (11.6-14.8) % Plt Count 240 (150-400) X10^3/uL Neut % (Auto) 71.7 (50-75) % Lymph % (Auto) 16.2 L (25-40) % [place] % (Auto) 10.6 (3-14) % Eos % (Auto) 0.9 L (2-4) % Baso % (Auto) 0.6 (0-2) % Neut # (Auto) 5300 (6611-1022) /uL Lymph # (Auto) 1200 (9463-6584) /uL [place] # (Auto) 800 (0-900) /uL Eos # (Auto) 100 (0-450) /uL Baso # (Auto) 0 (0-100) /uL PT (10.1-12.7) SECONDS INR (0.9-1.3) APTT (26.4-36.2) SECONDS Sodium 135 L (137-145) mmol/L Potassium 4.3 (3.4-5.1) mmol/L Chloride 105 (98-107) mmol/L Carbon Dioxide 26 (22-32) mmol/L BUN 11 (7-17) mg/dL Creatinine 0.54 (0.52-1.04) mg/dL Estimated GFR > 60.0 (>60) mL/min BUN/Creatinine Ratio 20.4 (6-22) Glucose 108 (80-110) mg/dL Lactate (0.7-2.1) mmol/L Calcium 8.9 (8.4-10.2) mg/dL Magnesium (1.6-2.3) mg/dL Total Bilirubin 0.7 (0.2-1.3) mg/dL AST 35 (14-36) IU/L ALT 33 (<35) IU/L Alkaline Phosphatase 68 (38-126) U/L Total Creatine Kinase 138 H (30-135) U/L CK-MB (CK-2) 3.55 H (<2.37) ng/mL CK-MB (CK-2) Rel Index 2.6 (1.5-5.0) % Troponin I 0.120 H (0.01-0.034) ng/mL NT-Pro-B Natriuret Pep 4590 H (<450) pg/mL Total Protein 6.5 (6.3-8.2) g/dL Albumin 4.0 (3.5-5.0) g/dL Globulin 2.5 (1.7-4.1) g/dL Albumin/Globulin Ratio 1.6 (1.0-2.8) Lipase 167 (23-300) U/L Procalcitonin (<0.5) ng/mL TSH (0.47-4.68) uIU/mL SARS-CoV-2 (PCR) (Negative) 07/11/21 07/11/21 07/11/21 Range/Units 11:40 11:40 11:40 WBC (4.5-11.0) X10^3/uL RBC (4.0-5.2) X10^6/uL Hgb (12.0-16.0) g/dL Hct (36-46) % MCV (80-100) fL MCH (26-34) PG MCHC (30-36) % RDW (11.6-14.8) % Plt Count (150-400) X10^3/uL Neut % (Auto) (50-75) % Lymph % (Auto) (25-40) % [place] % (Auto) (3-14) % Eos % (Auto) (2-4) % Baso % (Auto) (0-2) % Neut # (Auto) (2508-0469) /uL Lymph # (Auto) (7958-0405) /uL [place] # (Auto) (0-900) /uL Eos # (Auto) (0-450) /uL Baso # (Auto) (0-100) /uL PT (10.1-12.7) SECONDS INR (0.9-1.3) APTT (26.4-36.2) SECONDS Sodium (137-145) mmol/L Potassium (3.4-5.1) mmol/L Chloride (98-107) mmol/L Carbon Dioxide (22-32) mmol/L BUN (7-17) mg/dL Creatinine (0.52-1.04) mg/dL Estimated GFR (>60) mL/min BUN/Creatinine Ratio (6-22) Glucose (80-110) mg/dL Lactate (0.7-2.1) mmol/L Calcium (8.4-10.2) mg/dL Magnesium 2.2 (1.6-2.3) mg/dL Total Bilirubin (0.2-1.3) mg/dL AST (14-36) IU/L ALT (<35) IU/L Alkaline Phosphatase (38-126) U/L Total Creatine Kinase (30-135) U/L CK-MB (CK-2) (<2.37) ng/mL CK-MB (CK-2) Rel Index (1.5-5.0) % Troponin I (0.01-0.034) ng/mL NT-Pro-B Natriuret Pep (<450) pg/mL Total Protein (6.3-8.2) g/dL Albumin (3.5-5.0) g/dL Globulin (1.7-4.1) g/dL Albumin/Globulin Ratio (1.0-2.8) Lipase (23-300) U/L Procalcitonin (<0.5) ng/mL TSH 2.02 (0.47-4.68) uIU/mL SARS-CoV-2 (PCR) Negative (Negative) 07/11/21 07/11/21 07/11/21 Range/Units 11:43 11:52 11:52 WBC (4.5-11.0) X10^3/uL RBC (4.0-5.2) X10^6/uL Hgb (12.0-16.0) g/dL Hct (36-46) % MCV (80-100) fL MCH (26-34) PG MCHC (30-36) % RDW (11.6-14.8) % Plt Count (150-400) X10^3/uL Neut % (Auto) (50-75) % Lymph % (Auto) (25-40) % [place] % (Auto) (3-14) % Eos % (Auto) (2-4) % Baso % (Auto) (0-2) % Neut # (Auto) (3557-5304) /uL Lymph # (Auto) (6482-8314) /uL [place] # (Auto) (0-900) /uL Eos # (Auto) (0-450) /uL Baso # (Auto) (0-100) /uL PT 12.7 (10.1-12.7) SECONDS INR 1.1 (0.9-1.3) APTT 33 D (26.4-36.2) SECONDS Sodium (137-145) mmol/L Potassium (3.4-5.1) mmol/L Chloride (98-107) mmol/L Carbon Dioxide (22-32) mmol/L BUN (7-17) mg/dL Creatinine (0.52-1.04) mg/dL Estimated GFR (>60) mL/min BUN/Creatinine Ratio (6-22) Glucose (80-110) mg/dL Lactate 1.1 (0.7-2.1) mmol/L Calcium (8.4-10.2) mg/dL Magnesium (1.6-2.3) mg/dL Total Bilirubin (0.2-1.3) mg/dL AST (14-36) IU/L ALT (<35) IU/L Alkaline Phosphatase (38-126) U/L Total Creatine Kinase (30-135) U/L CK-MB (CK-2) (<2.37) ng/mL CK-MB (CK-2) Rel Index (1.5-5.0) % Troponin I (0.01-0.034) ng/mL NT-Pro-B Natriuret Pep (<450) pg/mL Total Protein (6.3-8.2) g/dL Albumin (3.5-5.0) g/dL Globulin (1.7-4.1) g/dL Albumin/Globulin Ratio (1.0-2.8) Lipase (23-300) U/L Procalcitonin 0.04 (<0.5) ng/mL TSH (0.47-4.68) uIU/mL SARS-CoV-2 (PCR) (Negative) 07/11/21 07/11/21 Range/Units 12:50 13:12 WBC (4.5-11.0) X10^3/uL RBC (4.0-5.2) X10^6/uL Hgb (12.0-16.0) g/dL Hct (36-46) % MCV (80-100) fL MCH (26-34) PG MCHC (30-36) % RDW (11.6-14.8) % Plt Count (150-400) X10^3/uL Neut % (Auto) (50-75) % Lymph % (Auto) (25-40) % [place] % (Auto) (3-14) % Eos % (Auto) (2-4) % Baso % (Auto) (0-2) % Neut # (Auto) (5903-4106) /uL Lymph # (Auto) (8101-5896) /uL [place] # (Auto) (0-900) /uL Eos # (Auto) (0-450) /uL Baso # (Auto) (0-100) /uL PT (10.1-12.7) SECONDS INR (0.9-1.3) APTT (26.4-36.2) SECONDS Sodium (137-145) mmol/L Potassium (3.4-5.1) mmol/L Chloride (98-107) mmol/L Carbon Dioxide (22-32) mmol/L BUN (7-17) mg/dL Creatinine (0.52-1.04) mg/dL Estimated GFR (>60) mL/min BUN/Creatinine Ratio (6-22) Glucose (80-110) mg/dL Lactate (0.7-2.1) mmol/L Calcium (8.4-10.2) mg/dL Magnesium (1.6-2.3) mg/dL Total Bilirubin (0.2-1.3) mg/dL AST (14-36) IU/L ALT (<35) IU/L Alkaline Phosphatase (38-126) U/L Total Creatine Kinase (30-135) U/L CK-MB (CK-2) (<2.37) ng/mL CK-MB (CK-2) Rel Index (1.5-5.0) % Troponin I 0.163 H* (0.01-0.034) ng/mL NT-Pro-B Natriuret Pep (<450) pg/mL Total Protein (6.3-8.2) g/dL Albumin (3.5-5.0) g/dL Globulin (1.7-4.1) g/dL Albumin/Globulin Ratio (1.0-2.8) Lipase (23-300) U/L Procalcitonin (<0.5) ng/mL TSH (0.47-4.68) uIU/mL SARS-CoV-2 (PCR) Negative (Negative) Imaging Data Chest x-ray: Radiologist's Impression: PROCEDURE:? XR CHEST 1V ? INDICATIONS:? chest pain ? TECHNIQUE:? One view of the chest was acquired.? ? COMPARISON:? [facility], CT, CT HEAD/BRAIN WO CON, 07/11/2021, 12:01. ? FINDINGS:? ? Surgical changes and devices:? None.? ? Lungs and pleura:? On this semiupright portable chest examination, no large pneumothorax or large pleural effusions are seen.? No focal infiltrates are seen.? Mild generalized interstitial prominence can be seen.? ? Mediastinum:? Mediastinal contours appear normal.? Heart size is normal.? Atherosclerotic calcification of the aortic arch is noted.? ? Bones and chest wall:? No suspicious bony lesions.? Age-appropriate bony degenerative changes are seen. ? Overlying soft tissues appear unremarkable.? ? ? IMPRESSION:? Interstitial prominence is seen throughout. The interstitial prominence is nonspecific, yet may be related to pulmonary edema.? Please consider atypical infection, including COVID pneumonia.? ? ? Dictated by: Moses Gibbs M.D. on 07/11/2021 at 11:39 ? ? CT scan - head: Radiologist's Impression: PROCEDURE:? CT HEAD/BRAIN WO CON ? INDICATIONS:? fall ? TECHNIQUE:? Noncontrast 4.5 mm thick angled axial sections acquired from the foramen magnum to the vertex, with coronal and sagittal reformats.? For radiation dose reduction, the following was used:? automated exposure control, adjustment of mA and/or kV according to patient size.? ? COMPARISON:? [facility], CT, CT HEAD/BRAIN WO CON, 09/05/2018, 12:58. ? FINDINGS:? Image quality:? Mild streak artifact can be seen through the skull base. ? CSF spaces:? Basal cisterns are patent.? No extra-axial fluid collections.? The ventricles are symmetric in size and shape.? ? Brain:? No intracranial bleeds or masses.? The hemorrhage seen in 2018 has resolved.? There is cerebral volume loss for age, with resultant ventricular and sulcal prominence.? There are periventricular and deep white matter chronic small vessel ischemic changes.? There is intracranial internal carotid artery atherosclerosis.? ? Skull and face:? Calvarium and visualized facial bones appear intact, without suspicious lesions.? ? Sinuses:? Visualized sinuses and mastoids are clear.? ? ? IMPRESSION:? No acute intracranial hemorrhage is seen.? ? No acute intracranial process is seen.? ? Note is made of age-appropriate brain parenchymal volume loss and chronic small vessel ischemic changes. ? No displaced calvarial fracture is seen.? ? Dictated by: Moses Gibbs M.D. on 07/11/2021 at 11:11 ? ? CT scan - abdomen/pelvis: Radiologist's Impression: PROCEDURE:? CT ANGIO CHEST ABDOMEN PELVIS ? INDICATIONS:? htn nstemi ? TECHNIQUE:? Precontrast 5 mm thick sections acquired from the lung apices to the iliac crests.? After the administration of intravenous contrast, 2.5 mm thick sections again acquired from the lung apices to the iliac crests.? Maximum intensity projection (MIP) oblique sagittal and coronal reformats were then acquired.? For radiation dose reduction, the following was used:? automated exposure control.? ? COMPARISON:? None. ? FINDINGS:? Image quality:? Excellent.? ? AORTA:? Thoracic and abdominal aorta demonstrate no aneurysmal dilatation or dissection.? Moderate scattered atherosclerotic calcifications seen throughout the aorta.? No periaortic inflammatory changes. ? CHEST:? Lungs and pleura:? Bilateral pulmonary emphysematous changes.? Bilateral pleural effusions larger on the right with associated compressive atelectasis.? A few scattered small ground-glass pulmonary nodules are noted in the bilateral upper lobe.? No focal consolidations.? Mild bibasilar atelectasis.? No pneumothorax.? Minimal smooth septal thickening.? Central and peripheral airways are patent and normal in caliber.? ? Mediastinum:? Heart size is normal.? Small amount of pericardial effusion, likely physiologic.? No mediastinal or hilar adenopathy by size criteria.? Central pulmonary arteries are normal in size.? Esophagus is normal in caliber.? No hiatal hernias.? Moderate atherosclerotic calcifications of the coronary arteries. ? Bones and chest wall:? No axillary adenopathy by size criteria.? Thyroid gland is unremarkable.? No suspicious bony lesions.? No vertebral body compression fractures.? ? ? ABDOMEN:? Vasculature:? Celiac trunk and mesenteric arteries are patent.? Renal arteries are also patent.? There are atherosclerotic calcifications at the origins of the celiac trunk and renal arteries.? ? Solid organs:? Liver is normal in size and enhancement.? Multiple hepatic hypodensities are in completely characterize.? The largest demonstrate no enhancement and near fluid attenuation.? These are favored to represent cysts.? Gallbladder contains a small gallstone.? No evidence for pericholecystic inflammatory changes. .? Biliary system is non dilated.? Pancreas enhances normally.? Spleen is normal in size and enhancement.? No adrenal nodules.? Both kidneys are normal in size and enhancement, without hydronephrosis.? Renal hilar vascular calcifications.? No nephroliths.? ? Peritoneum and bowel:? No free fluid or air.? Bowel loops are normal in caliber and wall thickness.? Extensive colonic diverticulosis without evidence for acute diverticulitis. ? Nodes and vessels:? No retroperitoneal or mesenteric adenopathy by size criteria.? Inferior vena cava is normal in morphology.? Scattered atherosclerotic calcifications of the abdominal aorta and iliac vessels without aneurysmal dilatation. ? Miscellaneous:? No ventral hernias.? ? ? PELVIS:? Genitourinary:? Bladder wall thickness is normal.? ? Miscellaneous:? No inguinal hernias or adenopathy.? No ventral hernias.? ? Bones:? No suspicious bony lesions.? No acute vertebral body compression fractures.? ? ? IMPRESSION:? ? 1. No evidence for aneurysmal dilatation or dissection of the thoracic or abdominal aorta. ? 2. Moderate atherosclerotic vascular disease. ? 3. Bilateral pleural effusions larger on the right.? There is also septal thickening bilaterally.? Findings may represent early pulmonary edema if clinically appropriate. ? 4. Very small amount of pericardial effusion, likely physiologic. ? 5. Scattered ground-glass nodules of the bilateral upper lobes, likely inflammatory or infectious in etiology.? Recommend follow-up chest CT in 3-6 months to document stability versus resolution. ? 6. Cholelithiasis without CT evidence for acute cholecystitis. ? 7. Multiple hepatic hypodensities favored to represent hepatic cysts. ? 8. Extensive colonic diverticulosis without evidence for acute diverticulitis. ? 9. The origins of the celiac trunk, SMA, and bilateral renal arteries appear patent. ? ? ? Dictated by: Robert Talbot M.D. on 07/11/2021 at 18:53 ? ? Approved by: Robert Talbot M.D. on 07/11/2021 at 19:07 ? ECG Data Interpretation: Normal sinus rhythm rate 46 MA interval 146 QRS 102 QTC 435 T-wave inversion noted in precordial leads without ST changes no priors to compare EKG 2. Sinus rhythm rate 42 MA interval 164 QRS 102 persistent T-wave inversions without ST changes MDM Narrative Medical decision making narrative: Patient is complaining of increasing shortness of breath with some thick positive orthopnea ongoing for the last few days. She is found have congestive heart failure with BNP is 4500. She is not hypoxic. Troponin indeterminate at the 1st 10.12 and the 2nd 1 2 hours later 0.16, this may be strain from congestive heart failure versus his and STEMI. However patient continues to have nonsustained runs of V tach. She feels fluttering in her chest prior to getting episodes. She is having frequent episodes every few minutes. 1400 Dr. Chahal cardiology been updated on patient's runs of V-tach in and STEMI agrees with an amiodarone heparin statin and aspirin. He does recommend transferring the patient to [facility] does not have any beds Amiodarone his started it does not seem to help her small V-tach runs of 3 today 8 beats quite frequently. She is symptomatic and feeling the. She is given Lasix for her congestive heart failure and started on heparin drip as well. 174 Dr. Wade, residential service technician at [place] obtain patient's symptoms test results recommend stopping amiodarone own and agrees to consult patient. [address] Morrison, obtain patient's symptoms test results and is happy to accept patient Patient continues to have small intermittent runs of nonsustained V-tach and is quite symptomatic. Blood pressure was rising as systolic became 200s CT angio was done and did not show any dissection Has of frequent ventricular tachycardia decision to continue amiodarone. Lopressor was ordered as well with increasing heart rate and normal blood pressure. 2.5 mg given. Critical Care Time Critical Care Time Critical Care Time: Yes Total Critical Care Time: 120 Attestation: The high probability of a clinically significant, sudden or life threatening deterioration of the [cardiovascular] system(s) required my full and direct attention, intervention and personal management. The aggregate critical care time was 120 minutes. This time is in addition to time spent performing reported procedures but includes the following: [x] Data Review and interpretation [x] Patient assessment and monitoring of vital signs [x] Documentation [x] Medication orders and management Discharge Plan Departure Patient Disposition: [facility] Clinical Impression: Congestive heart failure, Acute non-ST elevation myocardial infarction (NSTEMI) Prescriptions: No Action albuterol sulfate [Ventolin HFA] 90 mcg/actuation HFA aerosol inhaler 2 puff INHALATION .prn PRN (Reason: shortness of breath) Qty: 18 RF: 3 beclomethasone dipropionate 80 mcg/actuation HFA aerosol breath activated 1 inh inhalation DAILY Qty: 10.6 RF: 3 biotin 2,500 mcg capsule 2,500 mcg PO DAILY RF: 0 B-100 Complex 100 mg tablet extended release PO DAILY RF: 0 naproxen sodium [Aleve] 220 mg Tablet 1 tab PO PRN PRN (Reason: Headache) RF: 0 Calcium 1 tab PO QPM RF: 0 Referrals: Noel Napier DO [Primary Care Provider] -
[2021-07-11] MEDS: SODIUM CHLORIDE 0.9% 1,000 ML 150 ML IV (12:44)
[2021-07-11] MEDS: FUROSEMIDE 40 MG/4 ML VIAL 20 MG IV (13:11)
--- NOTE | 2021-07-11 14:00 | PC.NURSE ---
Pt showing runs of v.tach and suspicious for developing into a torsades on the monitor. Pt asumptomatic when this occurs. MD aware. Strips printed.
[2021-07-11 14:07] LABS: Magnesium 2.2 mg/dL (1.6-2.3)
[2021-07-11 14:08] LABS: COVID19 - ADMIT (NP swab/PCR) Negative (Negative)
[2021-07-11 14:11] LABS: Troponin I 0.163 ng/mL (0.01-0.034)
--- NOTE | 2021-07-11 14:17 | PC.NURSE ---
Pt up to bedside commode twice since lasix admin. She is very SOB and tachypneic with exertion, weak and pale. She understands plan to admit and be seen by cardiology team. 500urinary output thus far.
[2021-07-11] MEDS: HEPARIN 5,000 UNIT/ML VIAL 4000 UNIT IV (14:34)
[2021-07-11] MEDS: HEPARIN DRIP 25,000 UNIT/500 ML IV.SOLN 15.023 UNIT IV (14:35)
[2021-07-11] MEDS: ATORVASTATIN 20 MG TABLET 80 MG PO (15:35)
--- NOTE | 2021-07-11 16:00 | PC.NURSE ---
Pt continues to have runs of v.tach. Continues to increase in frequency. MD aware. Meds to be administered. Pt remains asymptomatic on occurence.
[2021-07-11] MEDS: AMIODARONE 150 MG/100 ML PIGGYBACK 600 MG IV (16:18)
[2021-07-11 16:46] LABS: Thyroid Stimulating Hormone 2.02 uIU/mL (0.47-4.68)
[2021-07-11] MEDS: AMIODARONE 360 MG/200 ML PIGGYBACK 33.33 MG IV (17:01)
--- NOTE | 2021-07-11 17:37 | DI.CT.S_ITS ---
PROCEDURE: CT ANGIO CHEST ABDOMEN PELVIS INDICATIONS: htn nstemi TECHNIQUE: Precontrast 5 mm thick sections acquired from the lung apices to the iliac crests. After the administration of intravenous contrast, 2.5 mm thick sections again acquired from the lung apices to the iliac crests. Maximum intensity projection (MIP) oblique sagittal and coronal reformats were then acquired. For radiation dose reduction, the following was used: automated exposure control. COMPARISON: None. FINDINGS: Image quality: Excellent. AORTA: Thoracic and abdominal aorta demonstrate no aneurysmal dilatation or dissection. Moderate scattered atherosclerotic calcifications seen throughout the aorta. No periaortic inflammatory changes. CHEST: Lungs and pleura: Bilateral pulmonary emphysematous changes. Bilateral pleural effusions larger on the right with associated compressive atelectasis. A few scattered small ground-glass pulmonary nodules are noted in the bilateral upper lobe. No focal consolidations. Mild bibasilar atelectasis. No pneumothorax. Minimal smooth septal thickening. Central and peripheral airways are patent and normal in caliber. Mediastinum: Heart size is normal. Small amount of pericardial effusion, likely physiologic. No mediastinal or hilar adenopathy by size criteria. Central pulmonary arteries are normal in size. Esophagus is normal in caliber. No hiatal hernias. Moderate atherosclerotic calcifications of the coronary arteries. Bones and chest wall: No axillary adenopathy by size criteria. Thyroid gland is unremarkable. No suspicious bony lesions. No vertebral body compression fractures. ABDOMEN: Vasculature: Celiac trunk and mesenteric arteries are patent. Renal arteries are also patent. There are atherosclerotic calcifications at the origins of the celiac trunk and renal arteries. Solid organs: Liver is normal in size and enhancement. Multiple hepatic hypodensities are in completely characterize. The largest demonstrate no enhancement and near fluid attenuation. These are favored to represent cysts. Gallbladder contains a small gallstone. No evidence for pericholecystic inflammatory changes. . Biliary system is non dilated. Pancreas enhances normally. Spleen is normal in size and enhancement. No adrenal nodules. Both kidneys are normal in size and enhancement, without hydronephrosis. Renal hilar vascular calcifications. No nephroliths. Peritoneum and bowel: No free fluid or air. Bowel loops are normal in caliber and wall thickness. Extensive colonic diverticulosis without evidence for acute diverticulitis. Nodes and vessels: No retroperitoneal or mesenteric adenopathy by size criteria. Inferior vena cava is normal in morphology. Scattered atherosclerotic calcifications of the abdominal aorta and iliac vessels without aneurysmal dilatation. Miscellaneous: No ventral hernias. PELVIS: Genitourinary: Bladder wall thickness is normal. Miscellaneous: No inguinal hernias or adenopathy. No ventral hernias. Bones: No suspicious bony lesions. No acute vertebral body compression fractures. IMPRESSION: 1. No evidence for aneurysmal dilatation or dissection of the thoracic or abdominal aorta. 2. Moderate atherosclerotic vascular disease. 3. Bilateral pleural effusions larger on the right. There is also septal thickening bilaterally. Findings may represent early pulmonary edema if clinically appropriate. 4. Very small amount of pericardial effusion, likely physiologic. 5. Scattered ground-glass nodules of the bilateral upper lobes, likely inflammatory or infectious in etiology. Recommend follow-up chest CT in 3-6 months to document stability versus resolution. 6. Cholelithiasis without CT evidence for acute cholecystitis. 7. Multiple hepatic hypodensities favored to represent hepatic cysts. 8. Extensive colonic diverticulosis without evidence for acute diverticulitis. 9. The origins of the celiac trunk, SMA, and bilateral renal arteries appear patent. Dictated by: Robert Talbot M.D. on 07/11/2021 at 18:53 Approved by: Robert Talbot M.D. on 07/11/2021 at 19:07
--- NOTE | 2021-07-11 19:00 | PC.NURSE ---
Pt has expressed multiple times to this RN that she is not sure she wants full treatment, making statements such as, what can be done at this point? I'm not sure I want all of this done to be kept alive. MD aware and now at bedside assisting her in filling out a POLST form.
[2021-07-11] MEDS: METOPROLOL TARTRATE 5 MG/5 ML INJ IV (19:27)
== END 2021-07-11 21:27 | disposition short-term general hospital (02) ==
PROVIDERS: Emergency Provider Emergency Medicine; PCP Family Medicine
DX: I21.4 Non-ST elevation (NSTEMI) myocardial infarction (principal); I50.9 Heart failure, unspecified; R07.9 Chest pain, unspecified; Z20.822 Contact with and (suspected) exposure to COVID-19; S09.90XA Unspecified injury of head, initial encounter; W19.XXXA Unspecified fall, initial encounter
CPT/HCPCS: 36415; 70450; 71045; 71275; 74174; 80053; 82550; 82553; 83605; 83690; 83735; 83880; 84145; 84443; 84484; 85025; 85610; 85730; 87635; 93005; 94640; 96361; 96365; 96366; 96367; 96368; 96375; 99285; 99291; 99292; C9803; J0282; J1644; J1940; Q9967